=== PATIENT | female | born 1990 | race Caucasian/White ===

== ENCOUNTER 2017-01-22 11:28 | Emergency (ER) | payer SELFPAY ==
[~2017-01-22] VITALS: Ht 162.6 cm; Wt 77.0 kg
[~2017-01-22 11:28] MED LIST: ASACOL HD800 MG PO; BENTYL20 MG PO; CIPRO500 MG PO; FLAGYL500 MG PO; LAMICTAL (BLUE)25 MG PO; METHYLIN20 MG PO; Motrin PO; PREDNISONE20 MG PO; RITALIN20 MG; SPRINTEC1 EACH PO; TYLENOL EXTRA500 MG PO; UCERIS9 MG PO; ZANTAC150 MG PO; ZOFRAN ODT4 MG PO; ZOFRAN4 MG PO
[2017-01-22 12:25] LABS: HEMATOCRIT 39.4 % (36.0-46.0); MCH 27.7 PG (29.0-34.0); MCHC 32.7 G/DL (30.0-36.0); MCV 84.5 FL (83-99); MEAN PLAT.VOLUME 9.6 uM^3 (9.5-12.4); PLATELET COUNT 505 K/uL (156-360); RBC DIS.WIDTH-CV 14.8 % (11.8-14.6); RBC DIS.WIDTH-SD 45.4 % (39-53); RED BLOOD COUNT 4.66 M/uL (3.80-5.20); WHITE BLOOD COUNT 19.7 K/uL (4.1-10.2)
[2017-01-22 12:46] LABS: ANION GAP 11 MEQ/L (2-14); CHLORIDE 98 MEQ/L (99-109); POTASSIUM 4.5 MEQ/L (3.7-5.4); SAMPLE HEMOLYSIS CHECK 0; SAMPLE ICTERIC CHECK 0; SAMPLE LIPEMIA CHECK 0; SODIUM 134 MEQ/L (136-147)
[2017-01-22 12:51] LABS: GFR ESTIMATE (CALCULATED) > 59 mL/min/; GLUCOSE 122 mg/dL (70-99); UREA NITROGEN (BUN) 12 mg/dL (9-23)
[2017-01-22 12:54] LABS: TROP-I INTERPRETATION NEGATIVE; TROPONIN-I < 0.01 ng/mL (0.0-0.30)
[2017-01-22] MEDS ORDERED: PREDNISONE20 MG PO (13:59)
[2017-01-22] MEDS ORDERED: COMPAZINE10 MG PO (16:12)
[2017-01-22 16:22] VITALS: BP 122/80
== END 2017-01-22 16:24 | disposition home or self-care (01) ==
LOC: EME 11:28
DX: K50.90 Crohn's disease, unspecified, without complications (principal); E86.0 Dehydration; E87.1 Hypo-osmolality and hyponatremia; R51 Headache; R00.0 Tachycardia, unspecified; Z87.442 Personal history of urinary calculi; Z87.891 Personal history of nicotine dependence
CPT/HCPCS: 71020; 80048; 84484; 85027; 93005; 99281; 99285; J0780; J2270; J7040; J7512

== ENCOUNTER 2017-01-31 03:36 | Emergency (ER) | payer SELFPAY ==
[~2017-01-31] VITALS: Ht 162.6 cm; Wt 75.7 kg
[~2017-01-31 03:36] MED LIST changes: +COMPAZINE10 MG PO
[2017-01-31 04:11] LABS: HEMATOCRIT 39.4 % (36.0-46.0); MCH 27.6 PG (29.0-34.0); MCV 83.7 FL (83-99); PLATELET COUNT 459 K/uL (156-360); RBC DIS.WIDTH-CV 15.2 % (11.8-14.6); RBC DIS.WIDTH-SD 46.6 % (39-53); RED BLOOD COUNT 4.71 M/uL (3.80-5.20); WHITE BLOOD COUNT 24.9 K/uL (4.1-10.2)
[2017-01-31 04:22] LABS: CHLORIDE 101 mEq/L (99-109); POTASSIUM 4.2 mEq/L (3.7-5.4); SODIUM 134 mEq/L (136-147)
[2017-01-31 04:25] LABS: GLUCOSE 112 mg/dL (70-99)
[2017-01-31 04:26] LABS: ANION GAP 12 MEQ/L (2-14)
[2017-01-31 04:27] LABS: TOTAL BILIRUBIN 0.4 mg/dL (0.0-1.0)
[2017-01-31 04:28] LABS: ALKALINE PHOSPHATASE 85 IU/L (3-129); GFR ESTIMATE (CALCULATED) > 59 mL/min/
[2017-01-31 04:30] LABS: UREA NITROGEN (BUN) 5 mg/dL (9-23)
[2017-01-31 04:37] LABS: QUANTITATIVE HCG < 4.0 MIU/ML
[2017-01-31] MEDS ORDERED: PREDNISONE20 MG PO ×2 (06:04→07:39)
[2017-01-31] MEDS ORDERED: FLAGYL500 MG PO ×2 (06:04→07:39)
[2017-01-31] MEDS ORDERED: PERCOCET 5/31 TABLET PO (06:04)
[2017-01-31] MEDS ORDERED: CIPRO500 MG PO ×2 (06:04→07:39)
[2017-01-31 07:29] VITALS: BP 99/56
[2017-02-02] MEDS ORDERED: DELTASONE20 M1 PO (11:56)
== END 2017-01-31 07:48 | disposition left against medical advice (07) ==
LOC: EME 03:36
PROVIDERS: Physician Assistant
DX: K50.111 Crohn's disease of large intestine with rectal bleeding (principal); E86.0 Dehydration; Z87.442 Personal history of urinary calculi; Z87.891 Personal history of nicotine dependence; Z91.040 Latex allergy status
CPT/HCPCS: 74177; 80053; 83605; 84702; 85027; 86850; 86900; 86901; 87040; 99281; 99284; J0744; J2405; J2930; J3010; J7030; S0030

== ENCOUNTER 2017-02-01 16:26 | Emergency (ER) | payer SELFPAY ==
[~2017-02-01] VITALS: Ht 162.6 cm; Wt 77.1 kg
[~2017-02-01 16:26] MED LIST changes: +PERCOCET 5/31 TABLET PO
[2017-02-01 17:46] LABS: CHLORIDE 103 mEq/L (99-109); POTASSIUM 4.3 mEq/L (3.7-5.4); SODIUM 140 mEq/L (136-147)
[2017-02-01 17:47] LABS: EOSINOPHIL (%) 0 % (0-5); HEMATOCRIT 38.8 % (36.0-46.0); IMMATURE GRANULOCYTE COUNT 0.4 K/uL; INSTRUMENT ABS NEUTROPHIL CT 18.3 K/uL; LYMPHOCYTE COUNT 0.9 K/uL (1.0-2.8); MCH 27.2 PG (29.0-34.0); MCHC 32.2 G/DL (30.0-36.0); MCV 84.5 FL (83-99); MONOCYTE (%) 2.1 % (3-12); MONOCYTE COUNT 0.4 K/uL (0-0.8); NEUTROPHIL (%) 91.5 % (45-76); NEUTROPHIL COUNT 18.3 K/uL (1.8-6.4); PLATELET COUNT 484 K/uL (156-360); RBC DIS.WIDTH-CV 15.1 % (11.8-14.6); RBC DIS.WIDTH-SD 46.3 % (39-53); RED BLOOD COUNT 4.59 M/uL (3.80-5.20); WHITE BLOOD COUNT 20.1 K/uL (4.1-10.2)
[2017-02-01 17:48] LABS: GLUCOSE 127 mg/dL (70-99)
[2017-02-01 17:49] LABS: ANION GAP 13 MEQ/L (2-14)
[2017-02-01 17:52] LABS: GFR ESTIMATE (CALCULATED) > 59 mL/min/
[2017-02-01 17:53] LABS: UREA NITROGEN (BUN) 10 mg/dL (9-23)
[2017-02-01 20:22] VITALS: BP 130/74
[2017-02-02] MEDS ORDERED: DELTASONE20 M1 PO (11:56)
== END 2017-02-01 20:27 | disposition home or self-care (01) ==
LOC: EME 16:26
PROVIDERS: Emergency Medicine Emergency Medical Services
DX: K50.90 Crohn's disease, unspecified, without complications (principal); E86.0 Dehydration; Z87.442 Personal history of urinary calculi; Z91.040 Latex allergy status; Z87.891 Personal history of nicotine dependence
CPT/HCPCS: 80048; 85025; 99281; 99285; J0744; J0780; J7040; S0030